=== PATIENT | male | born 1950 | race Caucasian/White ===

== ENCOUNTER → 2021-07-03 15:02 | Outpatient (BNVA) | payer OTHER, SELFPAY | PROVIDERS: Family Provider Family Medicine; PCP Family Medicine; Visit Provider Surgery | DX: Z20.822 Contact with and (suspected) exposure to COVID-19 (principal); Z11.52 Encounter for screening for COVID-19; R93.2 Abnormal findings on diagnostic imaging of liver and biliary tract; R10.9 Unspecified abdominal pain | CPT/HCPCS: 87635 ==

== ENCOUNTER 2021-07-09 12:34 | Day surgery (SDC) | payer OTHER, SELFPAY ==
[2021-07-06 15:59] VITALS: BMI 22.4
[2021-07-09] VITALS (12 sets, daily range): BP systolic 151–176; BP diastolic 80–107; PULSE 50–70; RESP 12–22; TEMP 36.3–36.6; O2SAT 90–97
--- NOTE | 2021-07-09 12:46 | W.PM.OPSFHP ---
Same Day Surgery H&P Indication for Procedure/HPI DATE OF PROCEDURE: July 09, 2021 CHIEF COMPLAINT/INDICATIONFOR SURGICAL PROCEDURE: Laparoscopic cholecystectomy PREOP DIAGNOSIS: gallbladder polyp PLANNED PROCEDRUE: Operation Date: 07/09/21 14:00 Proposed Procedures p Laparoscopic Cholecystectomy 90468 r93.2(Not Applicable) - Olman Nielson MD Medications/Allergies* Home Medications Medication Instructions Recorded Confirmed Type albuterol sulfate 90 mcg/actuation 2 puff INHALATION Q6H PRN 06/26/21 07/06/21 History aerosol inhaler bimatoprost 0.01 % eye drops 1 drp OPHTHALMIC (EYE) DAILY 06/26/21 07/06/21 History levothyroxine 50 mcg tablet 50 mcg PO DAILY 06/26/21 07/06/21 History lisinopril 10 mg tablet 10 mg PO BID 06/26/21 07/06/21 History pantoprazole 40 mg tablet,delayed 40 mg PO DAILY 06/26/21 07/06/21 History release sulindac 150 mg tablet 150 mg PO BID 06/26/21 07/06/21 History Allergies/Adverse Reactions Allergy/AdvReac Type Severity Reaction Status Date / Time acetaminophen [From Percocet] Allergy Unknown Verified 07/03/21 15:04 oxycodone [From Percocet] Allergy Unknown Verified 07/03/21 15:04 Pertinent History/Comorbid Conditions* Medical History (Updated 06/26/21 @ 15:33 by Olman Nielson MD) Gastric ulcer Histoplasmosis History of cataract History of colon polyps Hypertension Hypothyroidism Surgical History (Updated 06/26/21 @ 15:33 by Olman Nielson MD) H/O esophagogastroduodenoscopy History of ear surgery History of right inguinal hernia repair History of thumb surgery Status post colonoscopy Family History (Updated 06/26/21 @ 15:04 by ANDREI Love) Denies family history of Anesthesia complication Bleeding disorder Pertinent Exam Findings alert, oriented x 3 and regular rate & rhythm Recommendations Surgery/Procedure today Coding Level of Care Code Acute Medication Reconciliation Technician for Chg Olive
--- NOTE | 2021-07-09 13:02 | ANES.PREANE2 ---
Pre-Anesthetic Assessment Pre-Anesthetic Assessment: Height/Weight: Height 1.83 m Weight 74.843 kg Temp Pulse Resp BP Pulse Ox 97.6 F 50 L 17 155/88 97 07/09/21 12:59 07/09/21 12:59 07/09/21 12:59 07/09/21 12:59 07/09/21 12:59 Preop Diagnosis: gallbladder polyp Proposed Procedure: Operation Date: 07/09/21 14:00 Proposed Procedures p Laparoscopic Cholecystectomy 87801 r93.2(Not Applicable) - Olman Nielson MD Familial anesthetic complications: none Was Beta Elke taken within 24 hours: N/A Was Clonidine taken within 24 hours: N/A Last intake: Intake Last Liquid Date 07/09/21 Last Liquid Time 07:30 Last Solid Date 07/09/21 Last Solid Time 07:30 Social: Social History: Alcohol and Tobacco Comment: up to 1 oz a night Exam: Pre-Anes Outpt Exam: alert, oriented x 3, clear to auscultation bilaterally and regular rate & rhythm Airway: Cervical ROM: WNL MP: 3 Dentition: False Pulmonary: Pulmonary: Asthma and COPD CV/HEM: CV/HEM: HTN GI: GI: GERD Metabolic: Metabolic: Thyroid Anesthetic Plan: ASA status: 3 Anesthesia: General Risk of > 500 ml blood loss (7ml/kg in children): No PFSH Anesthesia PFSH: Medical History Gastric ulcer Histoplasmosis History of cataract History of colon polyps Hypertension Hypothyroidism Surgical History H/O esophagogastroduodenoscopy History of ear surgery History of right inguinal hernia repair History of thumb surgery Status post colonoscopy Family History Denies family history of Anesthesia complication Bleeding disorder Data Anesthesia Cardiac Studies: No Data to Display
[2021-07-09] MEDS: sodium chloride 0.9% 1,000 ML 30 ML IV (13:04)
--- NOTE | 2021-07-09 13:57 | PM.OP ---
Operative Report Date of procedure: July 09, 2021 Pre-op Diagnosis: gallbladder polyp Post-op diagnosis: same Procedure Done: Laparoscopic cholecystectomy Specimens removed/disposition: Gallbladder Surgeon: Olman Nielson Anesthesia: General Condition: stable Disposition: PACU Procedure: The patient was taken to the operating room and was intubated under general anesthesia. After the antibiotic had been administered, the abdomen was prepped and draped in a sterile manner. Using a #15 blade, a 1 centimeter infraumbilical curvilinear incision was made and using an open Katrin technique the peritoneal cavity was entered. A 10 millimeter port was placed and 15 millimeters of pneumoperitoneum was created. A 10 millimeter, 30 degrees scope was then introduced. Three 5 millimeter ports were placed in the epigastric, midclavicular and the anterior axillary line two fingerbreadths below the costal margin on the right side under the direct visualization. Ratcheted forceps were introduced into the lateral most port and was used to retract the fundus of the gallbladder cephalad and using forceps the infundibulum of the gallbladder was retracted laterally. Using L-hook cautery the peritoneum overlying the Calot's triangle was opened medially and laterally until the cystic duct and the cystic artery were skeletonized. Dissection was carried along the body of the gallbladder and after ensuring critical view of safety, 4 clips applied on the cystic duct and 3 clips applied on the cystic artery and cut leaving, 3 clips on the remaining portion of the duct and 2 clips on the remaining portion of the artery. The rest of the gallbladder was dissected off the liver using L-hook cautery. There was no bleeding or bile leaking noted from the gallbladder fossa and the clips appeared to be in place. An EndoCatch bag was introduced to remove the gallbladder. All the ports were removed under direct visualization and there was no bleeding noted from the port sites. The fascia of the umbilicus was closed using [id number] 0 Vicryl sutures and the subcutaneous tissue was approximated using 3-0 Vicryl sutures. The skin at all four ports were closed using 4-0 Monocryl and Dermabond. A total of 10 millimeters of 0.5% Marcaine was infiltrated around the port sites. The patient was stable throughout the procedure.
--- NOTE | 2021-07-09 14:15 | P.PCN_ITS ---
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
--- NOTE | 2021-07-09 14:15 | PM.PACU ---
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
[2021-07-09] MEDS: fentaNYL 50 mcg/mL INJ 2mL IVP ×2 (14:29→14:34)
--- NOTE | 2021-07-09 15:15 | ANE.PACU2 ---
Inpatient post-anesthesia follow up: Airway intact: Yes Vital signs: Temperature 97.8 F Pulse Rate 57 Respiratory Rate 15 Blood Pressure 159/88 Pulse Oximetry 92 Oxygen Delivery Me thod Room Air Oxygen Flow Rate 3 Fraction of Inspir ed Oxygen Hydration adequate: Yes Nausea and vomiting: No Pain level: 4 Mental status: Baseline
== END 2021-07-09 15:40 | disposition home or self-care (01) ==
PROVIDERS: PCP Family Medicine; Visit Provider Surgery
PROC: 0FT44ZZ Resection of Gallbladder, Percutaneous Endoscopic Approach (ICD-10-PCS; CPT 47562; principal; 2021-07-09 13:50)
DX: K81.1 Chronic cholecystitis (principal); D13.5 Benign neoplasm of extrahepatic bile ducts; Z86.010 Personal history of colon polyps; I10 Essential (primary) hypertension; E03.9 Hypothyroidism, unspecified; J44.9 Chronic obstructive pulmonary disease, unspecified
CPT/HCPCS: 47562; 88304; J0690; J1100; J2405; J2704; J2710; J3010; J3490; J7030

== ENCOUNTER 2021-10-12 09:37 | Outpatient (CLI) | payer OTHER, SELFPAY ==
--- NOTE | 2021-10-12 | CT_ITS ---
WS: [id number] Exam: CT abdomen w con* [id number] Date/Time of Exam: 10/12/2021 9:48 AM Reason For Exam: ELEVATED LIVER ENZYMES DLP: 745.[address] scans at [facility] use at least one of these dose optimization techniques: automated e xposure control; mA and/or kV adjustment per patient size (includes targeted exams where dose is matc hed to clinical indication); or iterative reconstruction. Lower lung zones are clear. The liver, spleen and stomach appear normal. There is a 7 mm low-attenuat ion nodule seen at the junction of the body and tail the pancreas. The gallbladder is surgically abse nt. The kidneys function and drain normally. Small bilateral renal cysts are noted. Unremarkable adre nal glands. The abdominal aorta is normal in caliber. The portal vein and IVC are patent. Small bowel loops are normal in caliber. No significant large bowel abnormality seen. Normal appendix visualized . No destructive bone lesions. No significant abdominal wall defect. CT/CT abdomen w con* [id number] IMPRESSION: 1. 7 mm low-attenuation nodule seen at the junction of the body and tail the p ancreas. This appears predominantly cystic. This may represent an intraductal p apillary mucinous neoplasm which represents a benign lesion. A cystic malignant lesion of the pancreas could have similar appearance. Repeat contrast CT in 3- 4 months would be suggested for surveillance. 2. No other sign of mass, lymphadenopathy or acute process in the abdomen. Herb r findings as noted above.
[2021-10-12] MEDS: iohexol 300 mg/mL 50 mL Btl PO (11:20)
[2021-10-12] MEDS: iodixanol 320 mg/mL 100mL Btl IV (11:20)
== END 2021-10-12 09:38 | disposition home or self-care (01) ==
PROVIDERS: PCP Family Medicine; Visit Provider Family Medicine
DX: R74.8 Abnormal levels of other serum enzymes (principal); D49.0 Neoplasm of unspecified behavior of digestive system
CPT/HCPCS: 74160; Q9967

== ENCOUNTER 2022-02-12 09:43 | Outpatient (CLI) | payer OTHER, SELFPAY ==
--- NOTE | 2022-02-12 10:10 | CT_ITS ---
WS: [id number] CT ABDOMEN AND PELVIS WITH AND WITHOUT CONTRAST HISTORY: LESION ON PANCREAS/FOLLOW UP TECHNIQUE: Unenhanced 5 mm axial imaging first performed through the abdomen. Post contrast imaging t hrough the abdomen and pelvis. Thin cut axial and coronal reformats. Oral contrast has been provided. Sagittal and coronal reformats are submitted. All CT scans at [facility] use at least one of these dose optimization techniques: automated exposure control; mA and/or kV adjustment per patient size (includes targeted exams where dose is matched to clinical indication); or iterative reconstruct ion. CONTRAST: Omnipaque 300; 95 mL IV. DLP: 948.97 mGy.cm COMPARISON: 10/12/2021 Mildly hyperexpanded lung bases. No pulmonary nodule. Heart size is normal. A small hiatal hernia. Liver and spleen are normal. Portal vein is normally enhancing. Prior cholecystectomy. Mild thickenin g of each adrenal gland. There is a 7 mm nodule associated with the LEFT adrenal gland. Low-attenuati on 5 mm nodule in the mid RIGHT renal cortex of the lungs certain etiology. This is too small to akshat acterize. There is an additional cyst measuring 10 x 19 mm in the inferior pole. There are several to o small to characterize low-attenuation nodules within the RIGHT kidney. 2 small to characterize hypo density dense nodule lower pole LEFT kidney. Moderate atherosclerosis aorta. Plaque and soft thrombus noted within the proximal SMA. No high-grade occlusion. There is mixed contrast attenuation in the S MV. This is probably due to phase of injection. Pancreas: Pancreas is normal size. Pancreatic duct and the common bile duct are normal. Very mild pro minence of the pancreatic head but no mass or abnormal enhancement or attenuation. There are several subcentimeter low-attenuation nodules throughout the pancreas. The largest towards the junction of th e pancreatic body and tail measures 5 mm. There are several additional smaller nodules throughout the pancreas. These are probably related to the pancreatic duct and very difficult to completely charact erize due to their small size. There is no solid enhancing mass. No pancreatitis. No calcifications. No GI tract obstruction. Moderate fecal retention. The appendix is normal. Urinary bladder is well distended. No intraluminal filling defects. Mildly heterogeneous prostate gla nd. No osseous destruction identified. CT/CT abdomen pelvis wo/w [id number] IMPRESSION: 1. No change in appearance of the pancreas and the low-attenuation nodules si nce 10/12/2021. The largest low-attenuation nodule measures 5 mm. There are add itional smaller nodules scattered throughout the pancreas. These are probably a ssociated with the duct and related to intraductal pancreatic mucinous neoplasm . Due to their small size follow-up is recommended every 6 months for a total o f 2 years to evaluate for instability. 2. No pancreatic duct dilatation. 3. Prior cholecystectomy. 4. No ascites or adenopathy.
[2022-02-12 12:12] LABS: Blood Urea Nitrogen 15 mg/dL (8-23)
== END 2022-02-12 09:44 | disposition home or self-care (01) ==
LOC: RAD 09:46
PROVIDERS: PCP Family Medicine; Visit Provider Family Medicine
DX: Z01.89 Encounter for other specified special examinations (principal); K86.9 Disease of pancreas, unspecified; Z90.49 Acquired absence of other specified parts of digestive tract
CPT/HCPCS: 74178; 82565; 84520; Q9967

== ENCOUNTER 2022-08-16 15:32 | Outpatient (CLI) | payer OTHER, SELFPAY ==
--- NOTE | 2022-08-16 15:36 | CTR_ITS ---
PROCEDURE INFORMATION: Exam: CT Abdomen With Contrast Exam date and time: 08/16/2022 4:05 PM Age: 71 years old Clinical indication: Condition or disease; Pancreatic condition; Other: Lesion; Prior surgery; Surgery type: Gb; Additional info: Pancreatic lesion TECHNIQUE: Imaging protocol: Computed tomography of the abdomen with contrast. Radiation optimization: All CT scans at this facility use at least one of these dose optimization techniques: automated exposure control; mA and/or kV adjustment per patient size (includes targeted exams where dose is matched to clinical indication); or iterative reconstruction. Contrast material: OMNI 350; Contrast volume: 95 ml; Contrast route: INTRAVENOUS (IV); COMPARISON: 1. CT abdomen pelvis wo/w [id number] 02/12/2022 11:[address] abdomen w con* [id number] 10/12/2021 10:41 AM RADIATION DOSE METRICS: Total DLP (mGy-cm): 580.4 FINDINGS: Lungs: There are mild emphysematous changes at the lung bases including prominent subpleural bleb at the mid right lung base. Liver: There is a diffuse decrease in hepatic parenchymal density, consistent with mild fatty infiltration. There is a tiny 3 mm sized simple cyst in the inferior left lobe of the liver an indeterminate 7 mm size subtle hypoenhancing nodule likely small cyst or hemangioma not significantly changed. In a low-risk patient, this is most likely to be benign and no further follow-up is recommended. In a high-risk patient, follow-up MRI in 3-6 months is recommended (or earlier if warranted by the patient's specific clinical circumstances). (Reference: Laxmi) Gallbladder and bile ducts: There has been a cholecystectomy. Pancreas: Question 4 mm cystic lesion junction of body and tail of the pancreas not significantly changed compared with the previous studies.Reimaging every 2 years for 10 years is recommended. (Reference: Seamus, 2017) Spleen: The spleen is normal. Adrenal glands: The adrenal glands are normal. Kidneys and ureters: Tiny probable benign cortical cysts are seen in both kidneys. 1 cm indeterminate cortical nodule posterior mid right kidney such as an image number 26 series 3 not significantly changed from 10/12/2021. Unless this has been completely characterized on other studies, recommend non-emergent MRI without and with contrast or non-emergent CT without and with contrast. MRI is preferred for masses under 1.5 cm. Stomach and bowel: Visualized stomach and bowel are unremarkable. No obstruction. No mucosal thickening. Appendix: A normal appendix is identified. Intraperitoneal space: Unremarkable. No free air. No significant fluid collection. Vasculature: The aorta demonstrates moderate atherosclerotic calcification. There is no evidence of an abdominal aortic aneurysm. Lymph nodes: There is no evidence of lymphadenopathy. Bones/joints: Unremarkable. No acute fracture. No dislocation. Soft tissues: Unremarkable. CT/CT abdomen w con* [id number] IMPRESSION: 1. Stable appearance of probable IPMN in the body of the pancreas. Consider biannual follow-up as described above. 2. Indeterminate lesion in the mid right kidney not significantly changed. If not already done please consider further evaluation with non urgent MRI 3. Stable probable benign lesions in the liver 4. Mild fatty liver COMMENTS: Consistent with the [employer]'s Incidental Findings Committee white paper (J Am Octavio Radiol 2018): Any incidental renal lesion less than 1 cm or classified as too small to characterize, or any incidental cystic renal lesion characterized as simple-appearing, is likely benign. No follow-up imaging is recommended for these lesions per consensus recommendations based on imaging criteria. REFERENCES: 1. Laxmi CAMPBELL, et al. Management of Incidental Liver Lesions on CT: A White Paper of the ACR Incidental Findings Committee. J Am Octavio Radiol. 2017;14(11):8170-8222. 2. Seamus STEVEN, et al. Management of Incidental Pancreatic Cysts: A White Paper of the ACR Incidental Findings Committee. J Am Octavio Radiol. 2017;14(7):911-923.
[2022-08-16] MEDS: iohexol 350 mg/mL 100 mL Btl PO (16:15)
[2022-08-16] MEDS: iohexol 350 mg/mL 100 mL Btl IV (16:16)
[2022-08-19 08:28] LABS: Blood Urea Nitrogen 21 mg/dL (8-23)
== END 2022-08-16 15:33 | disposition home or self-care (01) ==
LOC: RAD 15:33
PROVIDERS: PCP Family Medicine; Visit Provider Family Medicine
DX: Z01.89 Encounter for other specified special examinations (principal); K86.9 Disease of pancreas, unspecified; K76.0 Fatty (change of) liver, not elsewhere classified
CPT/HCPCS: 74160; 82565; 84520

== ENCOUNTER 2023-03-19 07:56 | Outpatient (CLI) | payer OTHER, SELFPAY ==
--- NOTE | 2023-03-19 08:04 | CT_ITS ---
WS: [id number] CT ABDOMEN WITH CONTRAST HISTORY: MONITOR PANCREATIC cystic LESION-6 MONTH RE-CHECK Contiguous single phase 5 mm axial imaging performed to the abdomen. Oral contrast has been provided. Coronal and sagittal reformats are submitted. All CT scans at [facility] use at least one of these dose optimization techniques: automated exposure control; mA and/or kV adjustment per patient size (includes targeted exams where dose is matched to clinical indication); or iterative reconstruct ion. IV CONTRAST: Omnipaque 350; 100 mL IV. Oral contrast: Yes. DLP: 171.09 mGy.cm COMPARISON: 08/16/2022, 02/12/2022, 10/12/2021 Lower thorax: Hyperexpanded lung bases with emphysema. Heart is normal size. No hiatal hernia. Liver/biliary system: Normal size liver. There are a few too small to characterize low-attenuation ma sses within the liver. Not changed. No bile duct dilatation. Normal portal vein. Gallbladder: Status post cholecystectomy. Pancreas: Normal size pancreas. Again noted is the 4 mm cystic mass near the junction of the body and tail of the pancreas which is unchanged. No enlarging mass. Additional 2 mm low-attenuation nodule n ear the neck of the pancreas is also stable. No duct dilatation. Spleen: Normal size spleen. No mass or infarct. Adrenal glands: Normal. Right kidney: Normal size kidney. There are several scattered too small to characterize hypodensities scattered throughout the kidney. The most concerning is of low-attenuation in the mid lateral cortex measuring 9 mm. No change since 10/12/2021. No obstruction or increasing mass. Left kidney: Normal size. There are several cortical hypodensities which are too small to characteriz e. No increasing solid mass. Aorta: Moderate atherosclerosis with no aneurysm. Lymphadenopathy: None. Free fluid: None. GI tract: Normally distended stomach. Visualized colon with nonobstructed pattern. Constipation. Abdominal wall: Unremarkable abdominal wall. No hernia. Visualized osseous structures: Unremarkable. CT/CT abdomen w con* [id number] IMPRESSION: 1. No interval change in cystic lesion in the pancreas measuring 4 mm. There i s an additional 2 mm nodule near the pancreatic neck which is also stable. Favo r IPMN. As recommended on the following study due to stability pancreatic CT ca n be performed every 2 years. 2. No change in the too small to characterize hepatic and renal hypodensities since 10/12/2021. As recommended on the prior CT renal MRI with and without con trast would provide additional information. 3. Prior cholecystectomy.
[2023-03-19] MEDS: iohexol 350 mg/mL 500 mL Btl (per mL) IV ×2 (08:26→08:35)
[2023-03-19 08:30] LABS: Blood Urea Nitrogen 19 mg/dL (8-23)
== END 2023-03-19 07:57 | disposition home or self-care (01) ==
LOC: RAD 07:59
PROVIDERS: PCP Family Medicine; Visit Provider Family Medicine
DX: K86.2 Cyst of pancreas (principal)
CPT/HCPCS: 74160; 82565; 84520; Q9967

== ENCOUNTER 2023-06-23 08:46 | Outpatient (CLI) | payer OTHER, SELFPAY ==
--- NOTE | 2023-06-23 | ECG_ITS ---
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 Interpretive Statements NAME OF STUDY: LEXISCAN SESTAMIBI STRESS TEST INDICATION: Bradycardia PROCEDURE: At the baseline, the blood pressure was 144/86 mmHg with a heart rate of 50 bpm. The electrocardiogram showed sinus rhythm, normal axis with possible old septal infarct. Nonspecific T wave changes. The Lexiscan was infused over a period of 20 seconds. A total of 0.4 milligrams of Lexiscan was infused. The stress phase was continued for a total of 5 minutes. Heart rate at the end of the stress phase was 72 bpm with a blood pressure 151/84 mm. The EKG at the peak infusion revealed no significant ST-T wave changes. Sestamibi was injected 20 seconds after the Lexiscan infusion. Blood pressure at the end of the recovery phase was 157/86 mmHg with a heart rate of 71 beats per minute. CONCLUSION: 1. No significant EKG changes with the LexiScan infusion. 2. No LexiScan induced chest pain or cardiac arrhythmia. 3. Normal blood pressure and heart rate response. 4. Sestamibi/sestamibi perfusion scan pending; see separate report. Electronically Signed On 07-01-2023 17:28:42 CDT by Tamika Nicole M.D. [id number]
--- NOTE | 2023-06-23 08:58 | NMCV_ITS ---
NM mimi perf SPECT r/s* [id number] Sonu Piper Age: 72 Gender: M : 1950 Exam Date: 06/23/2023 08:58 Ordering Phys: Molly Bolaños MD Technologist: YUNI Grady Exam Location: [facility] Indications: BRADYCARDIA STRESS TEST Please [facility] IMAGE PROTOCOL Rest/Stress 1 Lexiscan Day Radiopharmaceutical Dose (mCi) Administration Site Administered by Rest: Tc-99m 10.3 IV YUNI Orta Sestamibi Stress:Tc-99m 32.6 IV YUNI Grady Sestamibi Rest: 23-Jun-2023 60 Discovery 630 Stress: 23-Jun-2023 30 Discovery 630 0.4mg Lexiscan. Images obtained in supine and prone position. SPECT RESULTS Technical Quality: Excellent Raw Data Analysis: Normal Image Corrections: Patient motion artifact - motion correction applied Summed Stress Score: 3 Summed Rest Score: 3 Summed Difference Score: 3 PERFUSION FINDINGS Small sized perfusion abnormality of mid inferior and mid inferoseptal sanchez on rest images with improved tracer uptake on stress images. This is suggestive of attenuation artifact. FUNCTIONAL RESULTS (calculated via Gated SPECT) Stress Image LV EF (%): 58 Stress EDV (mL):104 TID: 0.88 Stress ESV (mL):44 FUNCTIONAL FINDINGS: The left ventricle is normal in size. Transient Ischemia Dilatation of 0.88. The left ventricular ejection fraction is normal with a value of 58%. There is normal left ventricular wall thickening. Normal end-diastolic and end-systolic volumes. IMPRESSIONS 1. Myocardial perfusion imaging is normal. Attenuation artifact noted in inferior and inferoseptal sanchez. 2. Overall left ventricular systolic function is normal without regional wall motion abnormalities, LVEF=58%. 3. EKG portion of the study will be reported separately. 4. Scan indicates low risk for cardiac events. Tamika Nicole MD (Electronically Signed) Final Date: 30 June 2023 12:45 S
[2023-06-23 09:11] VITALS: BMI 20.9
[2023-06-23] MEDS: regadenoson 0.4 Mg/5 ml Syringe IVP (10:35)
[2023-06-23 10:50] VITALS: BP 151/85; PULSE 74
== END 2023-06-23 08:47 | disposition home or self-care (01) ==
PROVIDERS: PCP Family Medicine; Visit Provider Family Medicine
DX: R00.1 Bradycardia, unspecified (principal)
CPT/HCPCS: 36415; 78452; 93017; 96374; A9500; J2785